=== PATIENT | male | born 1995 | race Caucasian/White ===

== ENCOUNTER 2019-01-29 01:46 | Emergency (ER) | payer OTHER ==
[2019-01-29] MEDS ORDERED: Ketorolac INJ* 30 MG/ML 1 ML VIAL IV PUSH ONE (02:35)
[2019-01-29] MEDS ORDERED: LORazepam INJ* 2 MG/ML 1 ML VIAL IV PUSH ONE (02:35)
[2019-01-29] MEDS ORDERED: Lorazepam PYXIS KEY PRN (02:35)
[2019-01-29] MEDS ORDERED: NS 0.9% 1000 ML** 1,000 ML IV ONE (02:36)
[2019-01-29] MEDS ORDERED: Lorazepam PYXIS KEY ONE (02:39)
--- NOTE | 2019-01-29 02:43 | ED ---
Dizziness - HPI Summary HPI Summary: This pt is a 23 y/o M presenting to [facility] with his father and a CC of weakness. He states that he has been feeling constantly weak and fatigued since he woke up today. He states that he had heat exhaustion over the weekend of 01/24/19. He also stated that he has been urinating and evacuating his bowels frequently. He stated that when he woke up [facility] he had anxiety, SOB and palpitations. The pt stated that he is very lightheaded and dizzy. He denies any fevers, diaphoresis, CP, abdominal pain, N/V/D, and headaches. He has no aggravating or alleviating factors. He has had lymes disease in the past and need hospitalization for it. Pt stated that he had no symptoms on 01/27/19. - History Of Current Complaint Chief Complaint: EDWeakness Stated Complaint: WEAKNESS/DIZZY PER PT Time Seen by Provider: 01/29/19 01:58 Hx Obtained From: Patient Last Known Well Date: 01/27/19 Onset/Duration: Still Present Timing: Constant Severity Initially: Mild Severity Currently: Moderate Character: Lightheaded, Weak Aggravating Factor(s): Nothing Alleviating Factor(s): Nothing Associated Signs And Symptoms: Positive: Negative - abdominal pain, SOB, Palpitations, Other: - lightheaded, dizzy, weak, fatigued, incontinence. Negative: Nausea, Vomiting, Diarrhea, Diaphoresis, Chest Pain, Fever - Allergies/Home Medications Allergies/Adverse Reactions: Allergies Allergy/AdvReac Type Severity Reaction Status Date / Time No Known Allergies Allergy Verified 01/29/19 01:50 PMH/Surg Hx/FS Hx/Imm Hx Previously Healthy: Yes Endocrine/Hematology History: Denies: Hx Anticoagulant Therapy Infectious Disease History: No Infectious Disease History: Denies: Traveled Outside the [place] in Last 30 Days - Social History Alcohol Use: Weekly Substance Use Type: Reports: Marijuana Smoking Status (MU): Never Smoked Tobacco Review of Systems Positive: Fatigue, Other - lightheaded. Negative: Fever, Skin Diaphoresis Negative: Chest Pain Negative: Abdominal Pain, Vomiting, Diarrhea, Nausea Positive: incontinence Neurological: Other - dizzy Positive: Weakness. Negative: Headache All Other Systems Reviewed And Are Negative: Yes Physical Exam - Summary Physical Exam Summary: VITAL SIGNS: Reviewed. GENERAL: Patient is a well-developed and nourished male who is lying comfortable in the stretcher. Patient is not in any acute respiratory distress. HEAD AND FACE: No signs of trauma. No ecchymosis, hematomas or skull depressions. No sinus tenderness. EYES: PERRLA, EOMI x 2, No injected conjunctiva, no nystagmus. EARS: Hearing grossly intact. Ear canals and tympanic membranes are within normal limits. MOUTH: Oropharynx within normal limits. NECK: Supple, trachea is midline, no adenopathy, no JVD, no carotid bruit, no c- spine tenderness, neck with full ROM CHEST: Symmetric, no tenderness at palpation LUNGS: Clear to auscultation bilaterally. No wheezing or crackles. CVS: Regular rate and rhythm, S1 and S2 present, no murmurs or gallops appreciated. ABDOMEN: Soft, non-tender. No signs of distention. No rebound no guarding, and no masses palpated. Bowel sounds are normal. EXTREMITIES: FROM in all major joints, no edema, no cyanosis or clubbing. NEURO: Alert and oriented x 3. No acute neurological deficits. Speech is normal and follows commands. SKIN: Dry and warm Triage Information Reviewed: Yes Vital Signs On Initial Exam: Initial Vitals Temp Pulse Resp BP Pulse Ox 98.5 F 76 20 151/112 99 01/29/19 01:47 01/29/19 01:47 01/29/19 01:47 01/29/19 01:47 01/29/19 01:47 Vital Signs Reviewed: Yes Diagnostics - Vital Signs Vital Signs Temp Pulse Resp BP Pulse Ox 01/29/19 02:31 64 14 122/76 98 01/29/19 02:01 77 11 143/99 99 01/29/19 02:00 16 01/29/19 01:47 98.5 F 76 20 151/112 99 - Laboratory Result Diagrams: 01/29/19 02:42 01/29/19 02:42 Lab Statement: Any lab studies that have been ordered have been reviewed, and results considered in the medical decision making process. - EKG 0209 Cardiac Rate: NL - 69 BPM EKG Rhythm: Sinus Rhythm ST Segment: Normal Ectopy: None Summary of EKG Findings: sinus rhythm and rate of 69 BPM with a Normal axis, Normal interval, No ischemic changes. Interpreted by Dr. Elfar at 0209 01/29/19. Dizzy Course/Dx - Course Course Of Treatment: This pt is a 23 y/o M presenting to [facility] with his father and a CC of weakness. He states that he has been feeling constantly weak and fatigued since he woke up today. He states that he had heat exhaustion over the weekend of 01/24/19 01/25/19. He stated that he had no symptoms on 01/27/19. Due to a lack of abnormal lab values, the pt will be discharged with a Dx of anxiety and weakness. He has no PE abnormalities. His EKG shows he has a normal sinus rhythm and rate of 69 BPM with a Normal axis, Normal interval, No ischemic changes. - Diagnoses Differential Diagnosis/HQI/PQRI: Anxiety Provider Diagnoses: Anxiety, Weakness Discharge - Sign-Out/Discharge Documenting (check all that apply): Patient Departure - discharge Patient Received Moderate/Deep Sedation with Procedure: No - Discharge Plan Condition: Stable Disposition: HOME Patient Education Materials: Anxiety (ED), Weakness (ED) Referrals: [facility] [Outside] - 2 Days Additional Instructions: Please return to the emergency department with any new or worsening symptoms. Also follow up with the [facility] in 2-3 days. - Attestation Statements Document Initiated by Scribe: Yes Documenting Scribe: Teo Lo Provider For Whom Scribe is Documenting (Include Credential): Oj Zambrano MD Scribe Attestation: Teo Valera, scribed for Oj Zambrano MD on 01/29/19 at 0338. Status of Scribe Document: Ready
[2019-01-29 02:50] LABS: ABS Eosinophils 0.1 10^3/ul (0-0.6); ABS Lymphocytes 1.7 10^3/ul (1.0-4.8); ABS Monocytes 0.4 10^3/ul (0-0.8); ABS Neutrophils 3.2 10^3/ul (1.5-7.7); Eosinophil % 2.1 %; Hematocrit 48 % (42-52); Hemoglobin 16.6 g/dL (14.0-18.0); Lymphocyte % 31.6 %; Mean Corpuscular HGB Conc 35 g/dL (31-36); Mean Corpuscular Hemoglobin 31 pg (27-31); Mean Corpuscular Volume 89 fL (80-94); Mean Platelet Volume 8.4 fL (7.4-10.4); Platelet Count 188 10^3/uL (150-450); Red Blood Count 5.38 10^6 /uL (4.18-5.48); Red Cell Distribution Width 13 % (10-15); White Blood Count 5.5 10^3/uL (3.5-10.8)
[2019-01-29 03:07] LABS: Albumin 4.2 g/dL (3.2-5.2); Albumin/Globulin Ratio 1.8 (1-3); BUN/Creatinine Ratio 11.2 (8-20); Calcium 9.7 mg/dL (8.6-10.3); EGFR African American 103.6 (>60); EGFR Non-African American 85.6 (>60); Globulin 2.3 g/dL (2-4); Magnesium 1.9 mg/dL (1.9-2.7); Potassium 3.7 mmol/L (3.5-5.0); Total Bilirubin 0.8 mg/dL (0.2-1.0); Total Protein 6.5 g/dL (6.4-8.9)
[2019-01-29 03:08] LABS: Urine Appearance Clear; Urine Bilirubin Negative (Negative); Urine Blood Negative (Negative); Urine Color Yellow; Urine Glucose Negative (Negative); Urine Ketones Negative (Negative); Urine Nitrite Negative (Negative); Urine Protein Negative (Negative); Urine Specific Gravity 1.018 (1.010-1.030); Urine Urobilinogen Negative (Negative)
[2019-01-29 03:52] VITALS: BP 126/79
== END 2019-01-29 03:51 | disposition home or self-care (01) ==
LOC: ED 01:46
DX: R53.1 Weakness (principal); F41.9 Anxiety disorder, unspecified
CPT/HCPCS: 36415; 80053; 81003; 82550; 83735; 85025; 93005; 96361; 96374; 96375; 99282; J1885; J2060

== ENCOUNTER 2019-03-22 21:22 | Emergency (ER) | payer OTHER ==
--- NOTE | 2019-03-22 21:54 | ED ---
Allergic Reaction/Systemic - HPI Summary HPI Summary: Patient is a 23 y/o M presenting to [facility] with girlfriend with concerns of possible allergic reaction. He states that around three days ago, he gave blood. Afterwards, patient had onset of pruritic rash at left arm needle puncture site. This rash gradually spread to the rest of his left arm, left trunk/chest area, and left face. Tonight, 03/22/19, around two hours ago, patient reports onset of difficulty swallowing and breathing. He notes that he has had similar episodes following needlesticks, but states the rash has been more severe this episode and reports that he has not had difficulty breathing and swallowing with previous episodes. Patient has not been evaluated by a child and adolescent psychologist for Sx and has not sought medical attention during previous episodes. He states that these Sx had resolved within a few weeks spontaneously for previous episodes. Patient states that he has been applying hydrocortisone cream with no relief. No Hx of diabetes is noted. On triage, pain is denied, nothing is noted to aggravate/alleviate Sx. Home medications and allergies are reviewed. - History of Current Complaint Chief Complaint: EDAllergicReaction Time Seen by Provider: 03/22/19 21:46 Hx Obtained From: Patient Onset/Duration: Started hours ago - difficulty swallowing and breathing, Started days ago - rash, Still Present Timing: Constant, Lasting Hours - difficulty swallowing and breathing, Lasting Days - rash Severity Currently: None Pain Intensity: 0 Pain Scale Used: 0-10 Numeric Location: Discrete @ - left arm, left chest/trunk, and left face Character: Pruritus Aggravating Factor(s): Nothing Alleviating Factor(s): Nothing Associated Signs And Symptoms: Positive: Difficulty Breathing, Other: - dysphagia - Allergies/Home Medications Allergies/Adverse Reactions: Allergies Allergy/AdvReac Type Severity Reaction Status Date / Time No Known Allergies Allergy Verified 03/22/19 21:28 PMH/Surg Hx/FS Hx/Imm Hx Endocrine/Hematology History: Denies: Hx Anticoagulant Therapy, Hx Diabetes Sensory History: Denies: Hx Legally Blind, Hx Deafness Opthamlomology History: Denies: Hx Legally Blind EENT History: Denies: Hx Deafness Infectious Disease History: No Infectious Disease History: Denies: Traveled Outside the [place] in Last 30 Days - Family History Known Family History: Negative: Diabetes - Social History Alcohol Use: Weekly Substance Use Type: Reports: Marijuana Smoking Status (MU): Never Smoked Tobacco Review of Systems ENT: Other - positive - dysphagia Positive: Shortness Of Breath Positive: Rash - left arm, chest/trunk and face; area is pruritic All Other Systems Reviewed And Are Negative: Yes Physical Exam - Summary Physical Exam Summary: Appearance: Well-appearing, Well-nourished, lying in bed comfortably Skin: Warm, dry; there are innumerable papular lesions centering and coalescing around needle puncture site at left arm, distant lesions spread out and have more pallor and chandni. Eyes: sclera anicteric, no conjunctival pallor ENT: mucous membranes moist, pharynx appears normal Neck: Supple, nontender Respiratory: Clear to auscultation, no signs of respiratory distress Cardiovascular: Normal S1, S2. No murmurs. Normal distal pulses in tibial and radial bilaterally. Abdomen: Soft, nontender, normal active bowel sounds present Musculoskeletal: Normal, Strength/ROM Intact Neurological: A&Ox3, awake and alert, mentation is normal, speech is fluent and appropriate Psychiatric: affect is normal, does not appear anxious or depressed Triage Information Reviewed: Yes Vital Signs On Initial Exam: Initial Vitals Temp Pulse Resp BP Pulse Ox 99.1 F 92 15 147/98 99 03/22/19 21:27 03/22/19 21:27 03/22/19 21:27 03/22/19 21:27 03/22/19 21:27 Vital Signs Reviewed: Yes Diagnostics - Vital Signs Vital Signs Temp Pulse Resp BP Pulse Ox 03/22/19 21:37 94 149/88 96 03/22/19 21:27 99.1 F 92 15 147/98 99 - Laboratory Lab Statement: Any lab studies that have been ordered have been reviewed, and results considered in the medical decision making process. Allergic Reaction Course/Dx - Course Course Of Treatment: Patient is a 23 y/o M presenting to [facility] with girlfriend with concerns of possible allergic reaction. He states that around three days ago, he gave blood. Afterwards, patient had onset of pruritic rash at left arm needle puncture site. This rash gradually spread to the rest of his left arm, left trunk/chest area, and left face. Tonight, 03/22/19, around two hours ago, patient reports onset of difficulty swallowing and breathing. He notes that he has had similar episodes following needlesticks, but states the rash has been more severe this episode and reports that he has not had difficulty breathing and swallowing with previous episodes. Patient has not been evaluated by a child and adolescent psychologist for Sx and has not sought medical attention during previous episodes. He states that these Sx had resolved within a few weeks spontaneously for previous episodes. Patient states that he has been applying hydrocortisone cream with no relief. On physical exam, there are innumerable papular lesions centering and coalescing around needle puncture site at left arm, distant lesions spread out and have more pallor and chandni. During ED course, patient received prednisone 40 mg and Atarax 50 mg PO. He was given prednisone and hydroxyzine prescriptions and advised to follow up with dermatology. He is agreeable with discharge to home. - Diagnoses Provider Diagnoses: Dermatitis Discharge ED - Sign-Out/Discharge Documenting (check all that apply): Patient Departure - discharge Patient Received Moderate/Deep Sedation with Procedure: No - Discharge Plan Condition: Stable Disposition: HOME Prescriptions: hydrOXYzine pamoate [Vistaril] 50 mg PO Q6HR #20 cap predniSONE TAB* [Deltasone 20 MG TAB*] 40 mg PO DAILY #21 tab Patient Education Materials: Dermatitis (ED) Referrals: Chris Holland MD [Medical Doctor] - Additional Instructions: I would recommend that you see one of the dermatologists in the area, as this reaction has been recurrent and is somewhat odd in its distribution. I am hopeful that the prednisone will help shorten the course of this reaction, and the vistaril should help with the itch, although at the expense of some sedation. - Billing Disposition and Condition Condition: STABLE Disposition: Home - Attestation Statements Document Initiated by Eh: Yes Documenting Scribe: AMADEO TAVAREZ Provider For Whom Eh is Documenting (Include Credential): KYLE CONNER MD Scribe Attestation: I, AMADEO TAVAREZ, scribed for KYLE CONNER MD on 03/23/19 at 1849. Scribe Documentation Reviewed: Yes Provider Attestation: The documentation as recorded by the AMADEO avelar accurately reflects the service I personally performed and the decisions made by me, KYLE CONNER MD Status of Scribe Document: Viewed
[2019-03-22] MEDS ORDERED: hydrOXYzine HCL TAB* 50 MG PO ONE (21:55)
[2019-03-22] MEDS ORDERED: predniSONE TAB* 20 MG PO ONE (21:55)
[2019-03-22 22:08] VITALS: BP 133/85
== END 2019-03-22 22:04 | disposition home or self-care (01) ==
LOC: ED 21:22
DX: L30.9 Dermatitis, unspecified (principal); R13.10 Dysphagia, unspecified; R06.00 Dyspnea, unspecified
CPT/HCPCS: 99282; A9270-GY; J7512